=== PATIENT | male | born 1975 | race Caucasian/White ===

== ENCOUNTER 2024-09-14 10:03 | Emergency (ER) | payer BC, SELFPAY ==
[2024-09-14 10:06] VITALS: BMI 29.5
[2024-09-14 10:37] VITALS: BP 175/85; PULSE 68; RESP 16; TEMP 37.3; O2SAT 97
--- NOTE | 2024-09-14 10:51 | EDNOTE_ITS ---
Upper Extremity Injury RME/HPI General Chief Complaint: Extremity Injury, Upper Stated Complaint: DEEP LACERATION RIGHT FORARM Time Seen by Provider: 09/14/24 10:09 Arrival date/time: 09/14/24 10:03 This is a 49-year-old male that comes in with complaints of laceration to his right forearm. Patient states he lacerated it with the paint scraper. Patient denies any other injuries. Patient denies any numbness tingling. Patient otherwise able to move right forearm with no issues. Related Data Previous Rx's ?Medication ?Instructions ?Recorded ibuprofen 800 mg tablet 800 mg PO Q6H PRN pain #14 t abs 09/14/24 Allergies Allergy/AdvReac Type Severity Reaction Status Date / Time No Known Allergies Allergy Verified 09/14/24 10:07 Review of Systems Review of Systems Systems Reviewed: All systems reviewed, normal except as documented Past Medical History Past Medical History Comments PMH COMMENT: None reported ED Exam Narrative Physical exam: VITAL SIGNS: Reviewed. GENERAL APPEARANCE: Alert and interactive, follows commands, no acute distress HEAD AND FACE: Non-traumatic. ENT: PERRL, conjuctiva pink and clear, eyelid no trauma, Mucous membrane moist. NECK: Supple, nontender, no nuchal rigidity. CHEST: No tenderness, no crepitus, no paradoxical movement, no retractions. LUNGS: breathing even and unlabored HEART: Regular rate, cap refill less than 2 seconds ABDOMEN: Soft, nondistended, no guarding NEUROLOGICAL: Gross motor function intact sensory function intact, Appropriate for age. MUSCULOSKELETAL: low back nontender, full range of motion. EXTREMITIES: No redness no swelling no skin breakdown on bilateral foot and leg. Distal neurovascular status intact bilateral foot, approximately 6 cm laceration to right forearm SKIN: Color pink, dry Course Quality Measures none Orders Category Date Time Status Cleanse Wound NEEDED Care 09/14/24 10:51 Completed XR forearm RT 2V Stat Exams 09/14/24 10:51 Completed Lidocaine 1% 20 ml [Xylocaine 1% 20 ML] Med 09/14/24 11:39 Discontinued 10 ml INFL X1 ONE TET,DIP/PERT AC (Adult)-Tdap [Boostrix Adult (Tdap) Med 09/14/24 11:39 Discontinued Vacc] 0.5 ml IMI .ONCE ONE Vital Signs Vital signs: Vital Signs Temperature 99.2 F 09/14/24 10:37 Pulse Rate 68 09/14/24 10:37 Respiratory Rate 16 09/14/24 10:37 Blood Pressure 175/85 H 09/14/24 10:37 Pulse Oximetry (%) 97 09/14/24 10:37 Oxygen Delivery Method Room Air 09/14/24 10:37 PROCEDURES: Laceration Laceration 1: Site: other (Right forearm) Side (If applicable): right Size (cm): 6 Description: irregular Depth: simple, single layer Local Anesthetic: lidocaine 1% Amount of anesthesia used (mL): 10 Pre-repair: wound explored and irrigated extensively Skin layer closed with: other Suture size (cm): other ([place] used) Technique: other (15 philippe used) Extremity Injury MDM Narrative MDM Narrative:: The laceration occurred right forearm Sensation is intact. There is full range of motion. There is no exposed tendons. No foreign bodies. Lidocaine 1% was used for anesthesia. The wound was irrigated extensively with normal saline. 15 [place] were placed. A dressing was placed. There were no complications. Patient was educated to keep area clean and dry for 24 hours. Then clean daily with soap and water. Patient was educated to return for any signs of infection including swelling, pain, redness, pus, or fever and instructed to make an appointment with primary care provider in 48 hours. Patient was educated to follow-up with primary or return to the emergency room for staple removal in the next 7 to 10 days. Patient verbalized understanding. forearm x ray: Findings: No fracture. No foreign body No dislocation Impression: No opaque foreign body depicted Patient data External records reviewed:: [facility] previous records Clinical information provided by:: patient Social determinants that could affect healthcare access:: none Patient has the following chronic illnesses:: None How is presenting disease/condition affected by chronic disease/condition?: no chronic disease Evaluation data The following diagnostics were reviewed and interpreted by me:: radiology exam(s) Lab and/or radiology exams considered but not ordered:: -N--/-A- Interpretation Summary: See note Medications / Prescriptions Medications or Prescriptions considered but not ordered:: None Medication administrations:: Medication Administration History Discontinued Medications Diphtheria/Tetanus/Acell Pertussis (Diphth,Pertuss(Acell),Tet Vac 0.5 Ml Syr- Adult) 0.5 ml IMi .ONCE ONE Stop: 09/14/24 11:40 Last Admin: 09/14/24 11:53 Dose: 0.5 ml Documented By: ER Lidocaine HCl (Lidocaine Hcl 1% 20 Ml Vial) 10 ml INFL X1 ONE Stop: 09/14/24 11:40 Last Admin: 09/14/24 11:52 Dose: 10 ml Documented By: ER Comments: Admin by ODALYS May See MAR Consultations Consultation(s) initiated? (list below): No Diagnosis Upper Extremity Injury Differential Diagnosis: other (laceration, avulsion, abrasion fracture) Most likely diagnosis given after review of the tests above:: Laceration with need of repair with philippe Admission Indicated Admission indicated?: not indicated Admission Request Was there a request for admission?: No Disposition Plan Disposition Plan: Discharge Discharge Attestation Discharge Attestation: The patient and all family members were given an opportunity to ask questions and understood the discharge instructions. Discharge instructions specifically effects, indications for sooner follow up or return to the emergency department, and the expected course of current diagnosis. Patient condition: Stable Discharge Plan Plan Patient Disposition: HOME (Self Care) Patient condition on transfer: Stable Prescriptions/Referrals Prescriptions/Med Rec: New ibuprofen 800 mg tablet 800 mg PO Q6H PRN (Reason: pain) Qty: 14 0RF Referrals: No Primary/Family,Physician [Primary Care Provider] - In 1 week Problem List Clinical Impression: Laceration Patient/Caregiver Discharge Instructions Discharge Activity: activity as tolerated Education Materials: ED Laceration: All Closures Additional Instructions: Philippe can come out in 10 days. Patient is to follow-up with primary provider in 1 to 2 days. Come back to the emergency room if symptoms change or worsen. Print Language: Ukrainian Stand Alone Forms: Mala Award Info., Patient Portal Info Letter PA/CRIMINAL JUSTICE PROFESSOR Supervising Physician PA/CRIMINAL JUSTICE PROFESSOR Supervising Physician: MERRY
--- NOTE | 2024-09-14 10:51 | XR_ITS ---
Examination: Forearm, right, 2 views. Technique: Forearm, AP, lateral 2 views Date and time of exam: September 14, 2024, 10:51 AM Indications: Laceration to the forearm today, forearm pain. Findings: No fracture. No foreign body No dislocation Impression: No opaque foreign body depicted
[2024-09-14] MEDS: LIDOCAINE HCL 1% 20 ML VIAL 10 ML INFL (11:52)
[2024-09-14] MEDS: DIPHTH,PERTUSS(ACELL),TET VAC 0.5 ML SYR- ADULT IMi (11:53)
[2024-09-14 12:26] VITALS: BP 144/89; PULSE 70; RESP 18; TEMP 37.1; O2SAT 98
== END 2024-09-14 12:27 | disposition home or self-care (01) ==
PROVIDERS: Emergency Provider Emergency Medicine
DX: S51.811A Laceration without foreign body of right forearm, initial encounter (principal); W45.8XXA Other foreign body or object entering through skin, initial encounter
CPT/HCPCS: 12002; 73090; 90471; 90715; 99283; J3490